=== PATIENT | male | born 1980 | race Two or more races ===

== ENCOUNTER 2018-04-26 09:45 | Emergency (ER) | payer MEDICAID ==
[~2018-04-26] VITALS: Ht 177.8 cm; Wt 95.0 kg
[2018-04-26 13:10] VITALS: BP 105/75
== END 2018-04-26 13:25 | disposition home or self-care (01) ==
LOC: ER 09:45
DX: J39.9 Disease of upper respiratory tract, unspecified (principal); J02.9 Acute pharyngitis, unspecified; F17.200 Nicotine dependence, unspecified, uncomplicated
CPT/HCPCS: 99283

== ENCOUNTER 2021-09-07 00:24 | Emergency (ER) | payer MEDICAID ==
[~2021-09-07] VITALS: Ht 170.2 cm; Wt 91.5 kg
[2021-09-07] MEDS ORDERED: KETOROLAC 60MG/2ML VIAL IM ONE (03:15)
[2021-09-07] MEDS ORDERED: IBUP-2028 MT (04:38)
[2021-09-07] MEDS ORDERED: TOPUD PO (04:38)
[2021-09-07 04:59] VITALS: BP 138/86
== END 2021-09-07 05:00 | disposition home or self-care (01) ==
LOC: ER 00:53
DX: M54.42 Lumbago with sciatica, left side (principal); M79.605 Pain in left leg; E78.00 Pure hypercholesterolemia, unspecified
CPT/HCPCS: 96372; 99283; J1885

== ENCOUNTER 2023-08-31 12:57 | Emergency (ER) | payer SELFPAY ==
[~2023-08-31] VITALS: Ht 170.2 cm; Wt 65.0 kg
[~2023-08-31 12:57] MED LIST: IBUP-2028 MT; TOPUD PO
[2023-08-31 13:41] VITALS: O2SAT 100
[2023-08-31] MEDS ORDERED: CEPH500T MT (16:16)
[2023-08-31] MEDS: ACETAMINOPHEN 325MG TABLET PO ONE (16:20)
[2023-08-31] MEDS: TETANUS, DIPHTHERIA, PERTUSSIS VAC/PF 0.5ML (>10YR OLD) IM ONE (16:24)
[2023-08-31 16:26] VITALS: BP 126/74; PULSE 69; RESP 20; TEMP 97.3
== END 2023-08-31 16:27 | disposition home or self-care (01) ==
LOC: ER 12:57
DX: S00.01XA Abrasion of scalp, initial encounter (principal); E78.00 Pure hypercholesterolemia, unspecified; X58.XXXA Exposure to other specified factors, initial encounter; Y93.9 Activity, unspecified; Y92.89 Other specified places as the place of occurrence of the external cause; Y99.8 Other external cause status
CPT/HCPCS: 70450; 90715; 90471; 99285; Z7610